=== PATIENT | female | born 1990 | race American Indian/Alaskan Native ===

== ENCOUNTER 2016-06-06 19:32 | Emergency (ER) | payer MEDICAID ==
--- NOTE | 2016-06-09 15:28 | ED Elopement Review ---
ED Pt Elopement review - Call Back decision Pt Call Back Decision: No action required
== END 2016-06-06 20:00 | disposition left against medical advice (07) ==
LOC: ED 19:32
DX: K08.89 Other specified disorders of teeth and supporting structures (principal); R20.2 Paresthesia of skin; Z53.21 Procedure and treatment not carried out due to patient leaving prior to being seen by health care provider

== ENCOUNTER 2017-06-10 11:01 | Emergency (ER) | payer MEDICAID ==
[2017-06-10] MEDS ORDERED: PROVENTIL IH ONE (15:06)
[2017-06-10] MEDS ORDERED: DECADRON IM ONE (15:06)
[2017-06-10] MEDS ORDERED: ATROVENT IH ONE (15:06)
--- NOTE | 2017-06-10 15:06 | Emergency Department Report ---
Blank Doc - Documentation Documentation: Patient is a 27-year-old [place] female is presenting with 4 days of cough cold and wheeze. Patient is asthmatic. The patient moved to a treatment room for albuterol treatment.
--- NOTE | 2017-06-10 15:41 | Emergency Department Report ---
HPI - General Chief Complaint: Adult Asthma Time Seen by Provider: 06/10/17 14:54 - HPI HPI: Patient is a 27-year-old female with a history of bronchitis who presents to the ED complaining of coughing and wheezing for the past 3 days. She admits that she's been having intermittent dry cough for the past 2 days. Patient also states that she thinks it's allergies seasonal causing her flare up of bronchitis She denies fevers/chills/nausea vomiting abdominal pain shortness of breath chest pain. ED Past Medical Hx - Past Medical History Hx HIV: No Additional medical history: BRONCHITIS - Surgical History Additional Surgical History: - Social History Smoking Status: Never Smoker Substance Use Type: None - Medications Home Medications: Home Medications Medication Instructions Recorded Confirmed Last Taken Type Albuterol Sulfate [Ventolin HFA] 2 puff IH Q4H PRN #1 hfa.aer.ad 06/11/13 Unknown Rx Fluticasone [Flonase] 1 spray NS QDAY #1 bottle 06/09/14 Unknown Rx Loratadine [Claritin] 10 mg PO DAILY #30 tablet 06/09/14 Unknown Rx Sulfamethoxazole/Trimethoprim 1 each PO BID #14 tablet 09/05/14 Unknown Rx [Bactrim DS TAB] HYDROcodone/APAP 5-325 [[place] 1 each PO Q6HR PRN #14 tablet 09/06/14 Unknown Rx 5-325 mg TAB] Ibuprofen [Motrin 800 MG tab] 800 mg PO Q8H PRN #30 tablet 09/06/14 Unknown Rx ALBUTEROL Inhaler [ProAir HFA 1 puff IH QID PRN #1 inha 10/04/14 Unknown Rx Inhaler] Prednisone [predniSONE 5 mg (6-Day 5 mg PO .TAPER #1 tab.ds.pk 10/04/14 Unknown Rx Pack, 21 Tabs)] Albuterol Sulfate [Ventolin HFA] 2 puff IH Q4H PRN #1 hfa.aer.ad 07/15/15 Unknown Rx Amoxicillin [Trimox CAP] 500 mg PO Q8H #30 capsule 10/31/15 Unknown Rx guaiFENesin/CODEINE [Robitussin AC] 5 ml PO QID PRN #100 oral.liqd 10/31/15 Unknown Rx Albuterol Sulfate [Ventolin HFA] 2 puff IH Q4H PRN #1 hfa.aer.ad 06/10/17 Unknown Rx Benzonatate [Tessalon Perles] 100 mg PO Q8HR #30 capsule 06/10/17 Unknown Rx Cetirizine HCl [ZyrTEC] 10 mg PO DAILY #14 capsule 06/10/17 Unknown Rx predniSONE [Deltasone] 20 mg PO QDAY #5 tab 06/10/17 Unknown Rx ED Review of Systems ROS: Stated complaint: ALLERGIES Other details as noted in HPI Constitutional: denies: chills, fever Eyes: denies: eye pain, eye discharge, vision change ENT: denies: ear pain, throat pain Respiratory: cough. denies: shortness of breath, wheezing Cardiovascular: denies: chest pain, palpitations Endocrine: no symptoms reported Gastrointestinal: denies: abdominal pain, nausea, diarrhea Genitourinary: denies: urgency, dysuria, discharge Musculoskeletal: denies: back pain, joint swelling, arthralgia Skin: denies: rash, lesions Neurological: denies: headache, weakness, paresthesias Psychiatric: denies: anxiety, depression Hematological/Lymphatic: denies: easy bleeding, easy bruising Physical Exam - Physical Exam Vital Signs: Vital Signs 06/10/17 06/10/17 11:16 15:22 Temperature 98.8 F Pulse Rate 75 Pulse Rate [ 62 Posterior Bilateral Throughout] Respiratory 16 Rate Respiratory 20 Rate [Posterior Bilateral Throughout] Blood Pressure 137/74 O2 Sat by Pulse 98 Oximetry Physical Exam: GENERAL: Alert and oriented x3, no apparent distress, Normal Gait, atraumatic. HEAD: Head is normocephalic and a-traumatic. NOSE: Nose symetrical, Nontender,Nares appeared normal. MOUTH:Mouth is well hydrated and without lesions. Tonsils nonerythematous or swollen, Uvula midline, Tongue not elevated. Mucous membranes are moist. Posterior pharynx clear, no exudate or lesions. Patent airways. NECK: Supple. Non edematous, . No lymphadenopathy or thyromegaly. LUNGS: Symetrical with respiration, No wheezing, no rales or crackles, CTAB. 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 Non tender to palpation BACK: Full range of motion, no spinal tenderness, nontender to palpation. NEUROLOGIC: The patient is cooperative with no focal neurologic deficits. SKIN: Warm and dry, No lesions, No ulceration or induration present. ED Course Vital Signs 06/10/17 06/10/17 11:16 15:22 Temperature 98.8 F Pulse Rate 75 Pulse Rate [ 62 Posterior Bilateral Throughout] Respiratory 16 Rate Respiratory 20 Rate [Posterior Bilateral Throughout] Blood Pressure 137/74 O2 Sat by Pulse 98 Oximetry ED Medical Decision Making - Medical Decision Making 27-year-old female presents with bronchitis ED course: Patient received dexamethasone, DuoNeb breathing treatment in ED Patient was in no respiratory or acute distress. Patient was breathing normally started at 100% room air Discussed the patient was sent home on the medications to help suppress symptoms. Discussed the follow-up with family care physician. The patient understands instructions. Discussed with the patient is symptoms worsen or new onset of symptoms to return to ED immediately. Critical care attestation.: If time is entered above; I have spent that time in minutes in the direct care of this critically ill patient, excluding procedure time. ED Disposition Clinical Impression: Bronchitis Disposition: [id number] TO HOME OR SELFCARE Is pt being admited?: No Does the pt Need Aspirin: No Condition: Stable Instructions: Acute Bronchitis (ED), Chronic Bronchitis (ED) Additional Instructions: Make sure to follow up with the primary care physician as discussed. Take all your medications as you've been prescribed. If you have any worsening symptoms or develop new symptoms please return to ED immediately. Prescriptions: Albuterol Sulfate [Ventolin HFA] 2 puff IH Q4H PRN #1 hfa.aer.ad PRN Reason: Shortness Of Breath Benzonatate [Tessalon Perles] 100 mg PO Q8HR #30 capsule Cetirizine HCl [ZyrTEC] 10 mg PO DAILY #14 capsule predniSONE [Deltasone] 20 mg PO QDAY #5 tab Referrals: OSCAR RODRIGUEZ MD [Primary Care Provider] - 3-5 Days [facility] [Outside] - 3-5 Days [facility] [Outside] - 3-5 Days [facility] [Outside] - 3-5 Days Forms: Work/School Release Form(ED) Time of Disposition: 16:55
[2017-06-10 17:23] VITALS: BP 151/74
== END 2017-06-10 17:22 | disposition home or self-care (01) ==
LOC: ED 11:01
DX: J40 Bronchitis, not specified as acute or chronic (principal)
CPT/HCPCS: 94644; 96372; 99283; J1100